=== PATIENT | male | born 1965 | race Caucasian/White ===

== ENCOUNTER 2024-07-26 10:08 | Emergency (ER) | payer BC, OTHER ==
[2024-07-26 13:29] VITALS: BP 142/77; PULSE 72
== END 2024-07-26 13:27 | disposition home or self-care (01) ==
LOC: MW.ED 10:08
DX: M25.511 Pain in right shoulder (principal); G89.29 Other chronic pain; I10 Essential (primary) hypertension; E78.00 Pure hypercholesterolemia, unspecified; K21.9 Gastro-esophageal reflux disease without esophagitis; E11.9 Type 2 diabetes mellitus without complications; Z79.4 Long term (current) use of insulin; Z79.899 Other long term (current) drug therapy
CPT/HCPCS: 73030-26-RT; 73030-RT; 99283